=== PATIENT | male | born 1965 | race Caucasian/White ===

== ENCOUNTER 2018-03-02 10:36 | Emergency (ER) | payer OTHER ==
[~2018-03-02] VITALS: Ht 180.3 cm; Wt 99.8 kg
--- NOTE | ~2018-03-02 | EKG ---
[place] [address] [employer] [place] [facility] [employer] [place] [address] ELECTROCARDIOGRAM REPORT Name: JOSIE DOYLE Room #: DEP Laci#: [id number] Admission: 03/02/18 Attend Phys: Discharge: 03/02/18 Date of : 61 Report #: [id number] THIS REPORT FOR: //name// [facility] ED Test Date: 2018-03-02 Test Time: 11:11:59 Pat Name: JOSIE DOYLE Department: Room: Gender: Physical Biochemist: gordon martinez : 1965 Requested By: Kalpana Up Order Number: [id number] MD: Chava Cole Measurements Intervals [place] Rate: 70 P: 30 OR: 134 QRS: 47 QRSD: 84 T: 55 QT: 392 QTc: 423 Interpretive Statements Sinus rhythm ST elev, probable normal early repol pattern No previous ECG available for comparison Electronically Signed On 03-02-2018 16:16:59 CDT by Chava Cole [email or web address] <ELECTRONICALLY SIGNED> By: Chava Cole MD 03/02/18 1616 1111 MD JACKELYN Merino
[2018-03-02] MEDS ORDERED: CARVEDILOL6.25 M1 PO (10:50)
[2018-03-02] MEDS ORDERED: CORICIDIN HBP1 EAC1 PO (10:51)
[2018-03-02 11:06] LABS: ABSOLUTE NEUTROPHILS 3.8 thou/uL (1.4-8.2); EOSINOPHILS 4.1 % (0.0-3.0); HEMATOCRIT 43.3 % (42.0-52.0); HEMOGLOBIN 15.4 gm/dL (14.0-18.0); LYMPHOCYTES 28.6 % (24.0-44.0); MCH 30.7 pg (26.0-34.0); MCHC 35.6 g/dL (28.0-37.0); MCV 86.4 fL (80.0-100.0); MONOCYTES 6.7 % (1.0-8.0); PLATELET COUNT 253 thou/uL (150-400); POLYS 59.6 % (36.0-66.0); RBC 5.02 mil/uL (4.50-6.00); RDW 13.1 % (10.5-14.5); WBC 6.4 thou/uL (4.0-11.0)
[2018-03-02 11:17] LABS: ANION GAP 10 mmol/L (7-16); BUN 16 mg/dL (7-18); CALCIUM 9.2 mg/dL (8.5-10.1); CHLORIDE 104 mmol/L (98-107); CO2 26 mmol/L (21-32); CREATININE 1.1 mg/dL (0.7-1.3); GLUCOSE 131 mg/dL (74-106); SODIUM 140 mmol/L (136-145)
[2018-03-02 11:26] LABS: TROPONIN-I < 0.04 ng/mL (<0.06)
[2018-03-02] MEDS ORDERED: TUSSIONEX PENN115 ML PO (11:36)
[2018-03-02] MEDS ORDERED: PROVENTIL HFA6.7 G1 INH (11:36)
[2018-03-02] MEDS ORDERED: FLONASE 0.05%50 MCG NASAL (11:57)
[2018-03-02 12:07] VITALS: BP 129/94
== END 2018-03-02 12:07 | disposition home or self-care (01) ==
LOC: ER 10:36
PROVIDERS: Emergency Medicine
DX: I10 Essential (primary) hypertension (principal); J06.9 Acute upper respiratory infection, unspecified; Z88.0 Allergy status to penicillin